=== PATIENT | male | born 1955 | race Caucasian/White ===

== ENCOUNTER 2023-05-21 08:10 | Day surgery (SDC) | payer OTHER ==
[~2023-05-21] VITALS: Ht 177.8 cm; Wt 113.5 kg
[~2023-05-21 08:10] MED LIST: ASCO500; CALCIUM; HYDCHL12.5 PO; Multivitamin1 EAC1; Prinivil10 MG PO
[2023-05-21] MEDS ORDERED: METOPROLOL TART50 M5 (08:24)
[2023-05-21] MEDS ORDERED: FURO20 (08:25)
--- NOTE | 2023-05-21 09:41 | NUR ---
05/21/23 0941 Swati Snider PT AND FAMILY UPDATED ON DELAY IN START TIME OF THEIR CASE DUE TO PREVIOUS CASE RUNNING LONGER THAN EXPECTED. BED IN LOW, LOCKED POSITION, CALL LIGHT IN REACH.
[2023-05-21 11:08] VITALS: BP 124/66
--- NOTE | 2023-05-21 11:11 | NUR ---
05/21/23 Swati Kwon IV D/C'Anthony WITH CATH TIP INTACT. SITE LIZA, ROSI AND OMER INTACT.
== END 2023-05-21 11:11 | disposition home or self-care (01) ==
LOC: ORSCSDS 08:10
PROVIDERS: Surgery
PROC: 0DBM8ZX Excision of Descending Colon, Via Natural or Artificial Opening Endoscopic, Diagnostic (ICD-10-PCS; principal; 2023-05-21 09:30)
PROC: 0DBP8ZX Excision of Rectum, Via Natural or Artificial Opening Endoscopic, Diagnostic (ICD-10-PCS; principal; 2023-05-21 09:30)
PROC: 0DBN8ZX Excision of Sigmoid Colon, Via Natural or Artificial Opening Endoscopic, Diagnostic (ICD-10-PCS; principal; 2023-05-21 09:30)
DX: Z12.11 Encounter for screening for malignant neoplasm of colon (principal); Z86.010 Personal history of colon polyps; D12.4 Benign neoplasm of descending colon; D12.5 Benign neoplasm of sigmoid colon; K63.5 Polyp of colon; K62.1 Rectal polyp; F17.210 Nicotine dependence, cigarettes, uncomplicated; I10 Essential (primary) hypertension; Z79.899 Other long term (current) drug therapy
CPT/HCPCS: 88305; J0461; J2001; J2405; J2704; J7120